=== PATIENT | male | born 1975 | race Caucasian/White ===

== ENCOUNTER → 2016-12-05 | Outpatient (CLI) | payer BC, OTHER ==
--- NOTE | 2016-12-08 09:07 | SLEEPCENT ---
DATE OF PROCEDURE: 12/05/2016 ORDERED BY: Ashanti Horowitz INTERPRETATION: Nocturnal polysomnography was performed due to concern for the obstructive sleep apnea syndrome in this patient with a history of excessive somnolence and nonrestorative sleep. 7 hours and 31 minutes of data were reviewed. There were 408 minutes of sleep identified. Sleep latency was normal at 13 minutes. REM sleep was delayed until interventions were made at 216 minutes. Sleep architecture improved after interventions were made. Overall sleep efficiency was 91.6%. The patient's EKG showed a sinus rhythm with an average heart rate of 75 beats per minute. EEG showed reasonably normal wave forms for awake and sleep. There were 72 respiratory events identified of 10 seconds in duration or greater for an apnea-hypopnea index of 10.6. The events were primarily obstructive not exclusive to sleep stage, associated with arousals 4.6 times per hour and oxygen desaturations into the 80s. Having clearly identified the presence of obstructive sleep apnea syndrome, testing was stopped at quarter to 1 a.m. for the application of pressure therapy. The patient was fit with a ResMed Quattro full face mask of medium size, 4 cm of water pressure were applied to the circuit and the lights were extinguished. Throughout the remaining portion of the study, titration was performed and optimal pressure at 6 cm was identified. There was little limb activity and remaining measures of sleep physiology were normal. IMPRESSION: Obstructive sleep apnea syndrome (G47.33). Apnea-hypopnea index 10.6. RECOMMENDATION: Nightly use of pressure therapy 6 cm of water.
== END ==
LOC: M SLEEP 19:48
PROVIDERS: ATTEND Nurse Practitioner Adult Health
DX: G47.33 Obstructive sleep apnea (adult) (pediatric) (principal)

== ENCOUNTER → 2020-03-11 | Outpatient (CLI) | payer OTHER ==
[2020-03-11 13:17] LABS: BASO # 0.1 10^3/uL (0.0-0.2); BASO % 0.5 % (0.0-1.0); EOS # 0.2 10^3/uL (0.0-0.5); HEMOGLOBIN 13.2 g/dl (13.5-17.5); LYMPH # 2.3 10^3/uL (1.5-5.0); LYMPH % 23.4 % (24.0-44.0); MEAN CORPUSCULAR HEMOGLOBIN 27.8 pg (27.0-33.0); MEAN CORPUSCULAR HGB CONC 32.2 g/dl (32.0-36.5); MEAN CORPUSCULAR VOLUME 86.3 fl (80.0-96.0); MONO # 0.7 10^3/uL (0.0-0.8); MONO % 6.9 % (0.0-5.0); NEUTROPHILS # 6.6 10^3/uL (1.5-8.5); NEUTROPHILS % 66.6 % (36.0-66.0); PLATELET COUNT, AUTOMATED 298 10^3/uL (150-450); RED BLOOD COUNT 4.75 10^6/uL (4.30-6.10); WHITE BLOOD COUNT 9.9 10^3/uL (4.0-10.0)
== END ==
LOC: M WUC 10:13
DX: D72.829 Elevated white blood cell count, unspecified (principal)

== ENCOUNTER → 2020-10-18 | Outpatient (CLI) | payer OTHER ==
[~2020-10-18] MED LIST: AMLO1TAB25; MONT10TA10; OMEP-221
== END ==
LOC: M LABSMTC 09:31
PROVIDERS: ATTEND Anesthesiology
DX: Z20.828 Contact with and (suspected) exposure to other viral communicable diseases (principal); Z11.59 Encounter for screening for other viral diseases

== ENCOUNTER 2020-10-23 11:30 | Day surgery (SDC) | payer OTHER ==
[~2020-10-23] VITALS: Ht 182.9 cm; Wt 139.3 kg
[~2020-10-23 11:30] MED LIST changes: -AMLO1TAB25; +AMLO1TAB25 PO; +FLON1SPR; +LIDOCAINE 2% 100MG/5ML SDV (FOR ANES.) As Ordered ONE; -MONT10TA10; +MONT10TA10 PO; +NS 1,000 ML IV ONE; -OMEP-221; +OMEP-221 PO; +ZYRTTAB8 PO; +propofoL 200 MG/20 ML VIAL As Ordered ONE
[2020-10-23] MEDS ORDERED: propofoL 200 MG/20 ML VIAL As Ordered ONE (13:59)
--- NOTE | 2020-10-23 14:08 | ROOR ---
Patient Name: Santana Carias Procedure Date: 10/23/2020 1:26 PM Date of : 1975 Age: 45 Room: [facility] Gender: Male Note Status: Finalized Procedure: Colonoscopy Indications: High risk colon cancer surveillance: Personal history of colonic polyps Providers: Kameron Wilson MD Referring MD: [facility], Admin. Requesting Provider: Medicines: Monitored Anesthesia Care Complications: No immediate complications. Procedure: Pre-Anesthesia Assessment: - The heart rate, respiratory rate, oxygen saturations, blood pressure, adequacy of pulmonary ventilation, and response to care were monitored throughout the procedure. The Colonoscope was introduced through the anus and advanced to the cecum, identified by appendiceal orifice and ileocecal valve. The colonoscopy was performed without difficulty. The patient tolerated the procedure well. The quality of the bowel preparation was adequate. Findings: The perianal and digital rectal examinations were normal. A frond-like/villous 3-4 cm polypoid mass was found in the cecum. This was biopsied with a cold forceps for histology. Multiple medium-mouthed diverticula were found in the sigmoid colon. Internal hemorrhoids were found during retroflexion. The hemorrhoids were small/moderate. Impression: - Rule out malignancy, polypoid mass/tumor in the cecum. (This was NOT removed. Biopsied). - Moderate diverticulosis in the sigmoid colon. - Small Internal hemorrhoids. Recommendation: - The cecal mass is not safely resectable via endoscopy. I will refer to a surgeon for surgical resection.at the next available appointment. Procedure Code(s): --- Professional --- 08442, Colonoscopy, flexible; with biopsy, single or multiple Diagnosis Code(s): --- Professional --- K57.30, Diverticulosis of large intestine without perforation or abscess without bleeding K64.8, Other hemorrhoids D49.0, Neoplasm of unspecified behavior of digestive system Z86.010, Personal history of colonic polyps CPT copyright 2019 [employer] [place] [employer]. All rights reserved. The codes documented in this report are preliminary and upon fleet operations manager review may be revised to meet current compliance requirements. Kameron Wilson MD Kameron Wilson MD 10/23/2020 2:08:04 PM Electronically signed by Kameron Wilson MD Number of Addenda: 0 Note Initiated On: 10/23/2020 1:26 PM Estimated Blood Loss: Estimated blood loss: none.
[2020-10-23 14:25] VITALS: BP 151/98
== END 2020-10-23 15:21 | disposition home or self-care (01) ==
LOC: M OPP 11:30
PROVIDERS: ATTEND Internal Medicine Gastroenterology
DX: Z86.010 Personal history of colon polyps (principal); D12.6 Benign neoplasm of colon, unspecified; K57.30 Diverticulosis of large intestine without perforation or abscess without bleeding; K64.8 Other hemorrhoids; I10 Essential (primary) hypertension; K21.9 Gastro-esophageal reflux disease without esophagitis; M19.90 Unspecified osteoarthritis, unspecified site; G47.30 Sleep apnea, unspecified; F17.200 Nicotine dependence, unspecified, uncomplicated; Z79.899 Other long term (current) drug therapy; Z83.3 Family history of diabetes mellitus; Z82.49 Family history of ischemic heart disease and other diseases of the circulatory system

== ENCOUNTER 2020-11-16 10:06 | Inpatient (IN) | payer OTHER ==
[~2020-11-16] VITALS: Ht 182.9 cm; Wt 134.3 kg
[~2020-11-16 10:06] MED LIST changes: +CelecoXIB 400 MG CAP PO ONE; +HEPARIN SOD (PORCINE) 5000UNITS/ML 1ML VIAL/SYRINGE SQ ONE; +LIDOCAINE 1% MDV 20ML VIAL SQ PRN; -LIDOCAINE 2% 100MG/5ML SDV (FOR ANES.) As Ordered ONE; +LR 1,000 ML IV ONE; -NS 1,000 ML IV ONE; +cefoTEtan DISODIUM 2 GM in D5W MINI-BAG PLUS 50 ML IV ONE; +metroNIDAZOLE 500 MG in IV 1 EA IV ONE; -propofoL 200 MG/20 ML VIAL As Ordered ONE
[2020-11-16] MEDS ORDERED: LIDOCAINE 1% SDV 30ML VIAL As Ordered ONE (12:07)
[2020-11-16] MEDS ORDERED: BUPIVACAINE HCL 0.25% 30ML VIAL As Ordered ONE (12:07)
[2020-11-16] MEDS ORDERED: BUPIVACAINE LIPOSOME/PF 1.3% 20ML VIAL (13.3MG/ML)(EXPAREL)(C9290 PER1MG) As Ordered ONE (12:07)
[2020-11-16] MEDS ORDERED: BUPIVACAINE HCL 0.25% 10ML VIAL As Ordered ONE (12:07)
[2020-11-16] MEDS ORDERED: ALVIMOPAN 12 MG CAPSULE (ENTEREG) PO ONE (12:50)
[2020-11-16] MEDS ORDERED: ROCURONIUM BROMIDE 50 MG/5 ML VIAL As Ordered ONE ×4 (13:06→17:19)
[2020-11-16] MEDS ORDERED: LIDOCAINE 2% 100MG/5ML SDV (FOR ANES.) As Ordered ONE (13:06)
[2020-11-16] MEDS ORDERED: propofoL 200 MG/20 ML VIAL As Ordered ONE (13:06)
[2020-11-16] MEDS ORDERED: MIDAZOLAM INJ 2MG/2ML VIAL (J2250 PER 1MG) As Ordered ONE (13:06)
[2020-11-16] MEDS ORDERED: fentaNYL 100 MCG/2 ML INJECTION (J3010) As Ordered ONE (13:06)
[2020-11-16] MEDS ORDERED: ONDANSETRON 4MG/2ML VIAL As Ordered ONE (13:06)
[2020-11-16] MEDS ORDERED: dexameTHASONE 4 MG/ML 1ML VIAL (J1100 PER 1MG) As Ordered ONE (13:06)
[2020-11-16] MEDS ORDERED: HYDROmorphone HCL 2 MG/ML 1ML VIAL (J1170) As Ordered ONE (13:16)
[2020-11-16] MEDS ORDERED: GLYCOPYRROLATE INJ 0.2 MG/ML 2 ML VIAL As Ordered ONE (13:27)
[2020-11-16] MEDS ORDERED: SUGAMMADEX SODIUM 500 MG/5 ML VIAL (BRIDION) As Ordered ONE (13:44)
[2020-11-16] MEDS ORDERED: ALBUTEROL 6.7GM INHALER **FOR ANES. CART/OMNICELL ONLY As Ordered ONE (16:47)
[2020-11-16] MEDS ORDERED: MORPHINE 4 MG/ML 1ML VIAL/SYRINGE (J2270) IV PRN (18:45)
[2020-11-16] MEDS ORDERED: ONDANSETRON 4MG/2ML VIAL IV PRN ×2 (18:45→18:55)
[2020-11-16] MEDS ORDERED: HYDROMORPHONE HCL 0.5 MG/ 0.5 ML SYRINGE (J1170 PER 1) IV PRN ×2 (18:55→19:25)
[2020-11-16] MEDS ORDERED: LR 1,000 ML IV SCH (18:55)
[2020-11-16] MEDS ORDERED: oxyCODONE 5MG TAB PO PRN (18:55)
[2020-11-16] MEDS: fentaNYL 100 MCG/2 ML INJECTION (J3010) IV PRN ×4 (19:00→19:22)
[2020-11-16] MEDS ORDERED: ACETAMINOPHEN 500 MG TAB PO ONE (19:30)
[2020-11-16 21:00] VITALS: BP 142/90
[2020-11-16] MEDS: FLUTICASONE PROP 0.05% NASAL SPRAY 16 GM (FLONASE) SCH (21:00)
[2020-11-16 21:30] VITALS: BP 140/86
[2020-11-16 22:00] VITALS: BP 149/77
[2020-11-16] MEDS: KETOROLAC 30 MG/ML 1ML VIAL IV SCH (22:04)
[2020-11-16] MEDS: SENOKOT S TAB PO SCH (22:04)
[2020-11-16] MEDS: LR 1,000 ML IV SCH (22:05)
[2020-11-16] MEDS: ALVIMOPAN 12 MG CAPSULE (ENTEREG) PO SCH (22:05)
[2020-11-16 23:00] VITALS: BP 115/78
[2020-11-17] VITALS: BP 124/77
[2020-11-17] MEDS: LR 1,000 ML IV SCH ×3 (00:38→16:35)
[2020-11-17 02:00] VITALS: BP 156/92
[2020-11-17] MEDS: KETOROLAC 30 MG/ML 1ML VIAL IV SCH ×4 (02:35→20:45)
[2020-11-17 06:00] VITALS: BP 156/91
[2020-11-17] MEDS: PERCOCET 5MG/325MG TAB PO PRN ×3 (06:56→23:16)
[2020-11-17 07:38] LABS: BASO % 0.3 % (0.0-1.0); EOS % 0.3 % (0.0-3.0); HEMATOCRIT 35.2 % (42.0-52.0); HEMOGLOBIN 11.3 g/dl (13.5-17.5); LYMPH # 2.2 10^3/uL (1.5-5.0); LYMPH % 15.3 % (24.0-44.0); MEAN CORPUSCULAR HEMOGLOBIN 27.6 pg (27.0-33.0); MEAN CORPUSCULAR HGB CONC 32.1 g/dl (32.0-36.5); MEAN CORPUSCULAR VOLUME 86.1 fl (80.0-96.0); MONO # 0.9 10^3/uL (0.0-0.8); MONO % 5.9 % (2.0-8.0); NEUTROPHILS # 11.3 10^3/uL (1.5-8.5); NEUTROPHILS % 77.8 % (36.0-66.0); PLATELET COUNT, AUTOMATED 273 10^3/uL (150-450); RED BLOOD COUNT 4.09 10^6/uL (4.30-6.10); WHITE BLOOD COUNT 14.5 10^3/uL (4.0-10.0)
[2020-11-17 08:03] LABS: BLOOD UREA NITROGEN 11 MG/DL (7-18); CALCIUM LEVEL 8.5 MG/DL (8.5-10.1); CARBON DIOXIDE LEVEL 28 MEQ/L (21-32); CHLORIDE LEVEL 106 MEQ/L (98-107); CREATININE FOR GFR 0.73 MG/DL (0.70-1.30); GLOMERULAR FILTRATION RATE > 60.0 (>60); GLUCOSE, FASTING 106 MG/DL (70-100); POTASSIUM SERUM 3.9 MEQ/L (3.5-5.1); SODIUM LEVEL 137 MEQ/L (136-145)
[2020-11-17] MEDS: MONTELUKAST 10 MG TAB PO SCH (08:30)
[2020-11-17] MEDS: SENOKOT S TAB PO SCH ×2 (08:30→20:45)
[2020-11-17] MEDS: ALVIMOPAN 12 MG CAPSULE (ENTEREG) PO SCH ×2 (08:30→20:45)
[2020-11-17] MEDS: FLUTICASONE PROP 0.05% NASAL SPRAY 16 GM (FLONASE) SCH ×2 (08:30→20:45)
--- NOTE | 2020-11-17 08:57 | IPNPDOC ---
Text Note Date of Service The patient was seen on 11/17/20. NOTE Gen. surgery. Dr. Hair The patient is a 45-year-old male with cecal mass status post robotic-assisted laparoscopic right colectomy as per Dr. Hair 11/16/20. The patient is sitting up in bed. Tolerated clear liquids for breakfast. He was reporting some pain but this improved after flatus. No bowel movement yet. Awake and alert sitting up in bed. Afebrile VSS Lungs clear to auscultation S1-S2 regular rate and rhythm Abdomen is obese, soft, mild tenderness around surgical sites, nondistended No edema I/O 3075/300 +2775 WBC 14.5, hemoglobin 11.3, platelets 27 Pathology pending Assessment/plan Status post robotic-assisted laparoscopic right colectomy as per Dr. Hair 11/16/20. Pathology pending The patient is reviewed and examined as per Dr. Hair this morning. Advance to soft diet for lunch IVF 125ml/hr Discontinue Castorena Encourage out of bed and ambulation DVT prophylaxis. Lovenox VS,Fishbone, I+O VS, Fishbone, I+O Laboratory Tests 11/17/20 07:12 Vital Signs Date Time Temp Pulse Resp B/P (MAP) Pulse Ox O2 Delivery O2 Flow Rate FiO2 11/17/20 08:30 66 138/66 11/17/20 07:27 18 11/17/20 06:00 98.1 97 Room Air 11/17/20 02:00 2.0 I&O- Last 24 Hours up to 6 AM 11/17/20 05:59 Intake Total 3075 ml Output Total 300 ml Balance 2775 ml Lidia Corbin Nov 17, 2020 08:57 MAYO HAIR MD Dec 08, 2020 10:50
[2020-11-17] MEDS: ENOXAPARIN 40MG/0.4ML SYRINGE (J1650 PER 10MG) SC SCH (10:03)
[2020-11-17 14:00] VITALS: BP 141/90
[2020-11-17 22:00] VITALS: BP 151/75
[2020-11-18] MEDS: LR 1,000 ML IV SCH ×2 (00:34→08:33)
[2020-11-18] MEDS: KETOROLAC 30 MG/ML 1ML VIAL IV SCH ×4 (03:39→21:27)
[2020-11-18 06:00] VITALS: BP 150/86
[2020-11-18] MEDS: PERCOCET 5MG/325MG TAB PO PRN ×3 (06:53→19:31)
[2020-11-18 07:01] LABS: BASO % 0.4 % (0.0-1.0); EOS # 0.2 10^3/uL (0.0-0.5); EOS % 1.5 % (0.0-3.0); HEMATOCRIT 33.6 % (42.0-52.0); HEMOGLOBIN 10.5 g/dl (13.5-17.5); LYMPH # 1.9 10^3/uL (1.5-5.0); LYMPH % 19.2 % (24.0-44.0); MEAN CORPUSCULAR HEMOGLOBIN 27.3 pg (27.0-33.0); MEAN CORPUSCULAR HGB CONC 31.3 g/dl (32.0-36.5); MEAN CORPUSCULAR VOLUME 87.5 fl (80.0-96.0); MONO # 0.6 10^3/uL (0.0-0.8); MONO % 6.4 % (2.0-8.0); NEUTROPHILS # 7.2 10^3/uL (1.5-8.5); PLATELET COUNT, AUTOMATED 272 10^3/uL (150-450); RED BLOOD COUNT 3.84 10^6/uL (4.30-6.10)
[2020-11-18 07:36] LABS: BLOOD UREA NITROGEN 9 MG/DL (7-18); CALCIUM LEVEL 8.4 MG/DL (8.5-10.1); CARBON DIOXIDE LEVEL 27 MEQ/L (21-32); CHLORIDE LEVEL 106 MEQ/L (98-107); GLOMERULAR FILTRATION RATE > 60.0 (>60); GLUCOSE, FASTING 120 MG/DL (70-100); POTASSIUM SERUM 4.1 MEQ/L (3.5-5.1); SODIUM LEVEL 137 MEQ/L (136-145)
[2020-11-18] MEDS: FLUTICASONE PROP 0.05% NASAL SPRAY 16 GM (FLONASE) SCH ×2 (08:32→21:00)
[2020-11-18] MEDS: SENOKOT S TAB PO SCH ×2 (08:33→21:00)
[2020-11-18] MEDS: MONTELUKAST 10 MG TAB PO SCH (08:33)
[2020-11-18] MEDS: ENOXAPARIN 40MG/0.4ML SYRINGE (J1650 PER 10MG) SC SCH (08:33)
[2020-11-18] MEDS: ALVIMOPAN 12 MG CAPSULE (ENTEREG) PO SCH ×2 (08:33→21:28)
[2020-11-18 14:00] VITALS: BP 149/86
[2020-11-18] MEDS: SIMETHICONE 80MG CHEW TAB PO PRN (21:28)
[2020-11-18] MEDS: ACETAMINOPHEN TAB 650MG DOSE (2X325MG) PO PRN (21:28)
[2020-11-18 22:00] VITALS: BP 136/86
[2020-11-19] VITALS (15 sets, daily range): BP systolic 111–158; BP diastolic 70–88
[2020-11-19] MEDS: KETOROLAC 30 MG/ML 1ML VIAL IV SCH ×3 (02:11→15:00)
[2020-11-19] MEDS: PERCOCET 5MG/325MG TAB PO PRN ×3 (02:11→20:49)
--- NOTE | 2020-11-19 03:34 | ROOPDOC ---
[facility] Report Of Operation Report of Operation DATE OF PROCEDURE: 11/16/20 PREPROCEDURE DIAGNOSES: cecal mass. POSTPROCEDURE DIAGNOSES: cecal mass. PROCEDURE: Robotic assisted laparoscopic right colectomy SURGEON: Nathan Tellez MD INFORMATION COORDINATOR: Smitha Collier, OLGA Ms. Collier assisted me with placement of ports, management of the robotic instruments, adjustment of the arms on the field while I was at the surgeon's console, retraction of bowels, extraction specimen and closure of the extraction site as well as closure of the ports during the surgery. ANESTHESIA: General endotracheal anesthesia ESTIMATED BLOOD LOSS: Approximately 50 mL. COMPLICATIONS: None. Patient hemodynamically stable throughout the procedure, successfully extubated to the recovery room. REMARKS: 45-year-old male who underwent screening colonoscopy and was found to have a la rge polypoid mass at the cecum/ascending colon junction that is not endoscopically resectable and biopsy shows high-grade dysplasia. Plan is for him to undergo a formal right colectomy for suspicion that this is a malignant lesion. PROCEDURE NOTE: Patient has very thick omentum and mesentery and floppy colon. No peritoneal lesions nor lesions at the surface of the liver noted. DESCRIPTION OF PROCEDURE: The patient was brought to the operating room and placed supine on the operating table. Cefotetan 2 g IV and redosed 1 gm every 4 hours and metronidazole 500 mg IV were administered prior to incision for prophylaxis. After induction of general endotracheal anesthesia, he was placed supine with both arms tucked on his sides with the pressure points padded. He received 5000 units of heparin preoperatively subcutaneously for DVT prophylaxis as well as compression boots in both his lower extremities. A Castorena catheter was inserted.Time-outs were performed using both preinduction and pre-incision safety checklists to verify correct patient, procedure, site, and additional critical information prior to beginning the procedure. A Veress needle was introduced into the abdominal cavity at the patient's left upper quadrant. Intra-abdominal placement confirmed with saline drop technique . and pneumoperitoneum to a pressure of 15 mmHg was achieved. Under direct visualization with the laparoscope an 8 mm robotic trocar was placed at the infraumbilical position. Proper intra-abdominal placement confirmed and no injuries noted underneath the insertion site. Likewise a varies needle insertion site examined with no signs of bleeding or injury. I started with performed diagnostic laparoscopy. I looked over at the peritoneum, omentum and surface of the liver with no visible studding or signs of metastasis noted. No free fluid. Omentum is quite bulky covering most of the small bowel. Likewise right side of the colon is quite floppy. Otherwise I could not visually confirm laparoscopically the lesion which is noted to be at the cecum on endoscopy. He was repositioned on about 10 degree Trendelenburg position tilted towards the left side. I established my robotic ports and the typical oblique positioning deviating towards the left side for adequate distance to the right colon and right upper quadrant area. I placed a 12 mm suprapubic port which I will use later on for extraction and 2 other 8 mm ports towards the left upper quadrant area. I performed a transversus abdominis plane block using a mixture of Exparel, 1 4% Marcaine and normal saline placed 30 mL in each side under ultrasound guidance The da Beth robot tower was then positioned in place over the patient's right hip area. The arms docked to the trochars, the instruments placed under direct vision. I then scrubbed out and took control of the camera and instruments at the surgeon's console while my help desk assistant remains in the field for instrument exchange as well as adjustment of the arms during surgery. The omentum was retracted towards the upper abdomen to reveal the course of the cecum and transverse colon. The cecum was grasped and lifted up to tent the mesentery to find the course of the ileocolic artery. I started opening up the mesentery below and medial to the course of the ileocolic artery and created my retroileocolic and retro colonic tunnel the Toldts fascia and retroperitoneum from the mesentery of the right colon mostly with blunt dissection. I followed the course of the ileocolic vessels medially. The ileocolic artery and vein are separately dissected. Hem-o-ulises clips placed on each of the vessels and they were divided. I continued my dissection medially until I was able to identify the duodenum which is in the more medial location probably more to do with his body habitus. To follow the course of the duodenal sweep medially as well as underneath the hepatic flexure towards the gallbladder and laterally towards the lateral attachments of the cecum and ascending colon. As the colon is quite floppy I had a hard time getting beyond the hepatic flexure and transverse colon as it was falling onto my camera. I then switched to a supra mesocolic dissection of the transverse colon the gastrocolic attachments from the transverse colon but also dividing the omentum to bring it towards the specimen side. Proceeded laterally towards the hepatic flexure. Here and there I was also switching to lateral dissection of the cecum and the ascending colon towards the hepatic flexure when the supra mesocolic dissection was difficult. After freeing up the hepatic flexure and lateral attachments of the ascending colon, I continued my prior medial mesenteric dissection on top of the duodenum. This was performed with michael Duong. The right branch of the middle colic was identified and this was circumferentially dissected and clipped and divided and then proceeded superiorly towards the transverse colon. The mesentery of the transverse colon was then divided with a single seal device. Prior to dividing the transverse colon, I used ICG and firefly to identify midline resection and make sure I have adequate perfusion. 3 cc of ICG was used. The transverse colon was then divided and 2 firings of the short form 60 mm stapler with a blue load. At this point I completed the left upper attachments to the retroperitoneum freeing the rest of the right colon off the Gerota's fascia and left over hepatic and retroperitoneal attachments. I chose roughly about 8 cm of terminal ileum as my proximal line of resection after freeing up the retroperitoneal attachments of the terminal ileum to allow this to swing towards the midline. This was also divided with a blue load of the short form 60 mm stapler. At this point the right colon has been fully released and divided and this was placed up on top of the liver for later retraction. The surgical site was inspected for bleeding and be irrigated the area. I again irrigated and checked for adequate hemostasis. The right colon was placed at the suprapubic area below the 12 mm site for later extraction. I then scrubbed in. I created about the 3-4 cm transverse incision at the stapler port. This through the subcutaneous thinks tissue and opened up the fascia for our extraction site. I used an Joel wound protector was placed and the right colon specimen was extracted. The extraction site the anastomosis is well up towards the epigastric area. The extraction site was then closed using 0 V-Loc to close the peritoneum and posterior fascia and #1 stratafix to close the anterior fascia. All skin incisions were closed with 4-0 Monocryl in a subcuticular fashion. Dermabond was then used for postoperative dressing. Patient tolerated procedure well. All counts of sponges and instruments verified correct. He was promptly awakened, extubated and brought to recovery room in stable condition. NATHAN TELLEZ MD Nov 19, 2020 03:34
[2020-11-19] MEDS: SIMETHICONE 80MG CHEW TAB PO PRN (06:02)
[2020-11-19] MEDS: ACETAMINOPHEN TAB 650MG DOSE (2X325MG) PO PRN (06:03)
[2020-11-19 06:54] LABS: BASO % 0.2 % (0.0-1.0); EOS % 0.1 % (0.0-3.0); HEMATOCRIT 25.6 % (42.0-52.0); LYMPH # 1.3 10^3/uL (1.5-5.0); LYMPH % 6.6 % (24.0-44.0); MEAN CORPUSCULAR HEMOGLOBIN 27.8 pg (27.0-33.0); MEAN CORPUSCULAR VOLUME 86.8 fl (80.0-96.0); MONO % 5.3 % (2.0-8.0); NEUTROPHILS # 16.5 10^3/uL (1.5-8.5); NEUTROPHILS % 86.7 % (36.0-66.0); PLATELET COUNT, AUTOMATED 249 10^3/uL (150-450); RED BLOOD COUNT 2.95 10^6/uL (4.30-6.10); WHITE BLOOD COUNT 19.1 10^3/uL (4.0-10.0)
[2020-11-19 07:00] LABS: HEMOGLOBIN 8.2 g/dl (13.5-17.5)
[2020-11-19 07:22] LABS: BLOOD UREA NITROGEN 15 MG/DL (7-18); CALCIUM LEVEL 8.3 MG/DL (8.5-10.1); CARBON DIOXIDE LEVEL 26 MEQ/L (21-32); CHLORIDE LEVEL 105 MEQ/L (98-107); CREATININE FOR GFR 0.86 MG/DL (0.70-1.30); GLOMERULAR FILTRATION RATE > 60.0 (>60); GLUCOSE, FASTING 148 MG/DL (70-100); SODIUM LEVEL 136 MEQ/L (136-145)
[2020-11-19] MEDS: SENOKOT S TAB PO SCH ×2 (07:48→20:49)
[2020-11-19] MEDS: MONTELUKAST 10 MG TAB PO SCH (07:53)
--- NOTE | 2020-11-19 08:48 | REP ---
INDICATION: s/p colon surgery, abdominal pain patient is status post robotic assisted laparoscopic right colectomy November 16, 2020. COMPARISON: Comparison CT study September 30, 2005.. TECHNIQUE: Helical scanning is acquired and 3 mm axial images were reformatted. Coronal and sagittal MPR images were generated and reviewed. FINDINGS: Digital preliminary pigs feet finisher view is unremarkable. There is some platelike atelectasis in the lung bases bilaterally, right more so than left. No pleural effusion is seen. There is scattered bubbles of free intraperitoneal air visible over the liver and anteriorly in the abdomen. This is compatible with residual postoperative air. There are subcutaneous postsurgical air bubbles in the anterior abdominal wall centrally in the suprapubic region and in the right mid abdomen. No focal hepatic lesion is seen. The spleen is unremarkable. There is a small accessory splenule. No pancreatic abnormality is seen. No abnormality is noted in the gallbladder. Normal adrenal glands are observed bilaterally. There is no evidence hydronephrosis. There is a small low-density area in the right kidney consistent with a cyst, 2 cm in diameter. There is a large area of mesenteric fat streaking consistent with edema in the right mid abdomen adjacent to what appears to be the ileo colic anastomosis. The ileal loop at the anastomosis is slightly dilated and thick-walled. There is a tiny amount of adjacent fluid. No evidence to suggest abscess. On pelvic images there is a small quantity of fluid in the pelvic reflections posterior to the seminal vesicles. Bowel loops are otherwise unremarkable. IMPRESSION: There is a large area of mesenteric fat streaking consistent with edema adjacent to the ileocolic anastomosis in the right mid abdomen. There are scattered bubbles of free intraperitoneal air consistent with residual postoperative air. A tiny quantity of fluid is seen in the pelvic reflections. No evidence of obstruction. <Electronically signed by Alec Mar > 11/19/20 [id number]
[2020-11-19] MEDS: FLUTICASONE PROP 0.05% NASAL SPRAY 16 GM (FLONASE) SCH ×2 (08:59→20:54)
[2020-11-19] MEDS: PIPERACILLIN/TAZOBACTAM SOD 3.375 GM in D5W MINI-BAG PLUS 50 ML IV SCH ×3 (08:59→20:51)
[2020-11-19] MEDS: NS 1,000 ML IV SCH ×2 (10:32→20:49)
[2020-11-19] MEDS: MORPHINE 4 MG/ML 1ML VIAL/SYRINGE (J2270) IV PRN ×2 (10:45→23:05)
[2020-11-19] MEDS ORDERED: LIDOCAINE 1% SDV 30ML VIAL As Ordered ONE (14:18)
[2020-11-19] MEDS ORDERED: BUPIVACAINE HCL 0.25% 30ML VIAL As Ordered ONE (14:18)
[2020-11-19] MEDS ORDERED: MIDAZOLAM INJ 2MG/2ML VIAL (J2250 PER 1MG) As Ordered ONE (14:25)
[2020-11-19] MEDS ORDERED: fentaNYL 100 MCG/2 ML INJECTION (J3010) As Ordered ONE ×2 (14:26→15:46)
[2020-11-19] MEDS ORDERED: propofoL 200 MG/20 ML VIAL As Ordered ONE ×2 (14:27→17:13)
[2020-11-19] MEDS ORDERED: LIDOCAINE 2% 100MG/5ML SDV (FOR ANES.) As Ordered ONE (14:29)
[2020-11-19] MEDS ORDERED: ZOSYN 3.375GM VIAL (J2543) As Ordered ONE (14:30)
[2020-11-19] MEDS ORDERED: ROCURONIUM BROMIDE 50 MG/5 ML VIAL As Ordered ONE ×4 (14:30→16:49)
[2020-11-19] MEDS ORDERED: dexameTHASONE 4 MG/ML 1ML VIAL (J1100 PER 1MG) As Ordered ONE ×2 (14:31→15:18)
--- NOTE | 2020-11-19 14:37 | IPNPDOC ---
Text Note Date of Service The patient was seen on 11/19/20. NOTE Yesterday morning patient was feeling well and was tolerating soft diet and was actually ready to go home. Sometime in the mid afternoon he started having more passing out bright red blood and had several bloody bowel movements overnight. Late in the evening he also started having some crampy abdominal pain. He describes this as mid abdominal crampy pain radiating to his lower back. He felt nauseated. Overnight he has 2 more raghavendra colored stools. He was also noted to be mildly febrile last night though this came down on its own. This morning patient still reports moderate abdominal pain though he does report that he feels mildly better than it was late last evening. Last bloody bowel movement was early this morning. He has remained hemodynamically stable. Vital signs reviewed T-max 100.8 at 2200 last night. 100.0 this morning. Pulse rate is 91. Resp iratory rate 18. 95% saturation on room air. Blood pressure 111/86 Examination He was sitting up on his chair with anterior room and looking comfortable. Skin is warm and moist. Lungs are clear to auscultation bilaterally Heart rate and rhythm are regular Abdomen looks moderately distended, soft. He has robotic/laparoscopic port sites are covered with Dermabond and are clean dry and intact. He has Pfannenstiel extraction site incision also looking clean without any drainage. There is some moderate tenderness over the periumbilical area with no definite rebound or guarding No significant extremity edema Laboratories His WBC was 10 yesterday and is increased to 19 today Hemoglobin also dropped from 10.5 yesterday to 8.2 today CRP is 10.8 Impression and plan He is postoperative day #3 after robotic assisted laparoscopic colectomy for cecal mass. Dr. 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 Final pathology not available yet. I have informed the patient of the initial pathology results. There is a big change from yesterday and overnight into day and my concern is whether he has an anastomotic leak. He certainly has staple line bleed that is significant enough to drop his hemoglobin 2 points from yesterday though he remains hemodynamically stable. I am more concerned about the new increasing abdominal discomfort that he is reporting. I have obtained a noncontrast CT and see for a few bubbles of air reddened top of the liver does not reveal any big free perforation. There is no large fluid collection. There is expected edema at the level of the anastomosis in the mesentery. As I am still concerned that there may be a problem with anastomosis I have elected to bring him to the operating room for diagnostic laparoscopy. My main concern is problems with the anastomosis. The anastomosis may need to be revised. Consent was obtained from the patient. I have also consented him for blood transfusion for 2 units today. I have started him on Zosyn to cover for possible anastomotic leakage and I have made him n.p.o. and started him on IV fluids. VS,Fishbone, I+O VS, Fishbone, I+O Laboratory Tests 11/19/20 06:29 Vital Signs Date Time Temp Pulse Resp B/P (MAP) Pulse Ox O2 Delivery O2 Flow Rate FiO2 11/19/20 14:15 99.6 95 18 156/80 96 Room Air 11/17/20 02:00 2.0 I&O- Last 24 Hours up to 6 AM 11/19/20 05:59 Intake Total 2740 ml Output Total 1925 ml Balance 815 ml MAYO HAIR MD Nov 19, 2020 14:37
[2020-11-19] MEDS ORDERED: ONDANSETRON 4MG/2ML VIAL As Ordered ONE (15:20)
[2020-11-19] MEDS ORDERED: BUPIVACAINE LIPOSOME/PF 1.3% 20ML VIAL (13.3MG/ML)(EXPAREL)(C9290 PER1MG) As Ordered ONE (15:46)
[2020-11-19] MEDS ORDERED: HYDROmorphone HCL 2 MG/ML 1ML VIAL (J1170) As Ordered ONE (16:03)
[2020-11-19] MEDS ORDERED: SUGAMMADEX SODIUM 500 MG/5 ML VIAL (BRIDION) As Ordered ONE (16:43)
[2020-11-19] MEDS ORDERED: BUPIVACAINE HCL 0.25% 10ML VIAL As Ordered ONE (16:49)
[2020-11-19] MEDS ORDERED: ACETAMINOPHEN 1000MG 100ML IV BTL (OFIRMEV) (J0131 PER 10MG) As Ordered ONE (17:21)
[2020-11-19] MEDS ORDERED: KETOROLAC 60MG 2ML VIAL As Ordered ONE (17:23)
[2020-11-19] MEDS ORDERED: fentaNYL 100 MCG/2 ML INJECTION (J3010) IV PRN (18:30)
[2020-11-19] MEDS ORDERED: ONDANSETRON 4MG/2ML VIAL IV PRN (18:30)
[2020-11-19] MEDS ORDERED: LR 1,000 ML IV SCH (18:30)
[2020-11-19] MEDS ORDERED: METOCLOPRAMIDE INJ 10MG/2ML VIAL (J2765 PER 1) IV PRN (18:30)
[2020-11-19] MEDS ORDERED: MEPERIDINE INJ 25 MG/ML VIAL (J2175) IV PRN (18:30)
[2020-11-19 18:32] LABS: HEMATOCRIT 28.8 % (42.0-52.0); HEMOGLOBIN 9.4 g/dl (13.5-17.5); MEAN CORPUSCULAR HEMOGLOBIN 28.3 pg (27.0-33.0); MEAN CORPUSCULAR HGB CONC 32.6 g/dl (32.0-36.5); MEAN CORPUSCULAR VOLUME 86.7 fl (80.0-96.0); PLATELET COUNT, AUTOMATED 228 10^3/uL (150-450); RED BLOOD COUNT 3.32 10^6/uL (4.30-6.10); WHITE BLOOD COUNT 16.6 10^3/uL (4.0-10.0)
[2020-11-20 02:00] VITALS: BP 127/72
[2020-11-20] MEDS: PERCOCET 5MG/325MG TAB PO PRN ×6 (02:05→23:35)
[2020-11-20] MEDS: PIPERACILLIN/TAZOBACTAM SOD 3.375 GM in D5W MINI-BAG PLUS 50 ML IV SCH ×4 (02:05→20:17)
[2020-11-20] MEDS: MORPHINE 4 MG/ML 1ML VIAL/SYRINGE (J2270) IV PRN ×3 (04:57→14:36)
[2020-11-20] MEDS: NS 1,000 ML IV SCH (05:15)
[2020-11-20 06:00] VITALS: BP 157/91
[2020-11-20 06:23] LABS: BASO % 0.1 % (0.0-1.0); EOS % 0.1 % (0.0-3.0); HEMATOCRIT 26.6 % (42.0-52.0); HEMOGLOBIN 8.6 g/dl (13.5-17.5); LYMPH % 5.1 % (24.0-44.0); MEAN CORPUSCULAR HEMOGLOBIN 28.3 pg (27.0-33.0); MEAN CORPUSCULAR HGB CONC 32.3 g/dl (32.0-36.5); MEAN CORPUSCULAR VOLUME 87.5 fl (80.0-96.0); MONO # 1.2 10^3/uL (0.0-0.8); MONO % 6.1 % (2.0-8.0); NEUTROPHILS # 16.7 10^3/uL (1.5-8.5); NEUTROPHILS % 87.8 % (36.0-66.0); PLATELET COUNT, AUTOMATED 224 10^3/uL (150-450); RED BLOOD COUNT 3.04 10^6/uL (4.30-6.10)
[2020-11-20 06:46] LABS: BLOOD UREA NITROGEN 12 MG/DL (7-18); CALCIUM LEVEL 8.2 MG/DL (8.5-10.1); CARBON DIOXIDE LEVEL 28 MEQ/L (21-32); CHLORIDE LEVEL 106 MEQ/L (98-107); CREATININE FOR GFR 0.74 MG/DL (0.70-1.30); GLOMERULAR FILTRATION RATE > 60.0 (>60); GLUCOSE, FASTING 135 MG/DL (70-100); POTASSIUM SERUM 4.1 MEQ/L (3.5-5.1); SODIUM LEVEL 136 MEQ/L (136-145)
--- NOTE | 2020-11-20 07:55 | ROOPDOC ---
[facility] Report Of Operation Report of Operation DATE OF PROCEDURE: 11/19/20 PREPROCEDURE DIAGNOSES: postop bleeding, possible anastomotic leak. POSTPROCEDURE DIAGNOSES: bleeding and small perforation at the mesenteric end of the transverse colon stump, intact ileocolic anastomosis. PROCEDURE: Diagnostic Laparoscopy converted to mini-laparotomy with washout of abdomen, resection of previous ileocolic anastomosis and new anti-peristaltic ileo-colic anastomosis. SURGEON: Nathan Tellez MD, INJECTION MOLD TOOLING TECHNICIAN: ANESTHESIA: General endotracheal anesthesia. ESTIMATED BLOOD LOSS: Approximately 100 mL. COMPLICATIONS: None. REMARKS: Patient is a 45-year-old male who is postop day 3 from robotic assisted laparoscopic right colectomy for cecal mass, yesterday started having multiple bright red blood in raghavendra colored stool output as well as increasing abd ominal pain overnight. This morning he has leukocytosis of 19,000 from 10,[address] scan of the abdomen and pelvis was not so revealing or definitive for anastomotic leakage but patient's course is suspicious for it so I decided to bring him to the operating room for diagnostic laparoscopy. PROCEDURE NOTE: Small amount of murky fluid. Hepatically and around the ileocolic anastomosis but no tawanda succus or stool that I could see. I tested the anastomosis under water and this was not evident of also for a leak but there is a good amount of swelling at the level of the anastomosis and the small bowel portion of the anastomosis is tethered to the retroperitoneum over the right upper quadrant area which may be causing some obstruction, thus I decided to bring the anastomosis to the surface to examine it more thoroughly with a mini laparotomy above the umbilicus. Examination shows there is a small amount of punctate hole at the mesenteric side of the transverse colon stump. This is close to but not at the staple line. There is also some small amount of pericolonic and perimesenteric exudates around the area pointing to this as the site of the perforation. The ileocolic anastomosis turned out to be intact. Moderate amount of swelling at the mesentery of the transverse colon at that area of the perforation.. DESCRIPTION OF PROCEDURE: . NATHAN TELLEZ MD Nov 20, 2020 07:55
--- NOTE | 2020-11-20 09:22 | IPNPDOC ---
Text Note Date of Service The patient was seen on 11/20/20. NOTE Patient seen this morning. They brought him back to the operating room for s uspicion of an anastomotic leak and he was found to have a small punctate hole at the transverse colon stump. This is away from the anastomotic line also below but not exactly at the stump staple line but within the mesentery. This probably caused both the bleeding and the delayed perforation so I would think this may be an energy device injury during dissection or may be was caught up with the stapler during firing. I revised the ileocolic anastomosis after resecting the prior anastomotic site. He has been afebrile, hemodynamically stable, nontachycardic after the procedure and has made adequate urine output. He reports he feels somewhat "tight" but otherwise pain is better, denies any nausea. He is not yet passing any flatus nor having any bowel movements. He has not had any bloody bowel movements since yesterday morning. Vital signs Postoperatively he has been afebrile. Latest vitals shows temperature of 98.7. Pulse rate 72. Respiratory rate 21. Blood pressure 157/91. Pulse oximetry reading of 93% at room air. On examination he was sitting upright on his bed. He looks more comfortable than he was preoperatively yesterday. Skin is warm moist. Lung sounds are clear to auscultation bilaterally with no wheezing. Adequate deep inspirations. Regular heart rate and rhythm without murmurs. Abdomen looks much less distended more flat than yesterday, still somewhat mil dly distended. Hypoactive bowel sounds. He has a new vertical incision above the umbilicus this is covered with Dermabond. Mild bruising around it but otherwise clean dry and intact without any drainage. He has a new Ahmet-Cosme drain that is draining light serosanguineous fluid. Mildly tender around more the incision site also slightly right lower abdomen. No rebound or guarding No significant edema Laboratory WBC still elevated at 19,000. Hemoglobin 8.6. Hematocrit 26.6. He had 2 units packed RBC transfused yesterday. Electrolytes are acceptable. BUN of 12 creatinine 0.7 Impression and plan He is now postop day 4 from the original robotic assisted laparoscopic right colectomy, postop day 1 after return to the OR and was found to have a small perforation at the transverse colon stump with revision of the prior ileocolic anastomosis via a mini laparotomy incision Overall improved. We will go slow on his progression of his oral intake. I will allow him some full liquids there on the day. I have advised him to ambulate the hallways. We will discontinue his Castorena catheter. I am have expecting that he may have some element of ileus due to the inflammatory/infectious process. Continue the IV Zosyn. Continue with Lovenox for DVT prophylaxis. This was stopped perioperatively due to the bleeding. He has some post hemorrhagic anemia we will continue just to watch this for now. I do not believe he is actively bleeding at this point. 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 VS,Fishbone, I+O VS, Fishbone, I+O Laboratory Tests 11/19/20 18:13 11/20/20 06:04 Vital Signs Date Time Temp Pulse Resp B/P (MAP) Pulse Ox O2 Delivery O2 Flow Rate FiO2 11/20/20 06:48 18 11/20/20 06:00 98.7 72 157/91 (113) 93 Room Air 11/19/20 18:45 1.0 I&O- Last 24 Hours up to 6 AM 11/20/20 06:00 Intake Total 3110 ml Output Total 1880 ml Balance 1230 ml MAYO HAIR MD Nov 20, 2020 09:22
[2020-11-20] MEDS: CelecoXIB (CeleBREX) 100 MG CAP PO SCH ×2 (09:23→20:17)
[2020-11-20] MEDS: MONTELUKAST 10 MG TAB PO SCH (09:23)
[2020-11-20] MEDS: FLUTICASONE PROP 0.05% NASAL SPRAY 16 GM (FLONASE) SCH ×2 (09:24→20:17)
[2020-11-20] MEDS: SENOKOT S TAB PO SCH ×2 (09:24→20:17)
[2020-11-20] MEDS: FERROUS GLUCONATE 324 MG TAB PO SCH (09:31)
[2020-11-20] MEDS: ENOXAPARIN 40MG/0.4ML SYRINGE (J1650 PER 10MG) SC SCH (09:31)
[2020-11-20 10:00] VITALS: BP 116/70
[2020-11-20 14:00] VITALS: BP 118/70
[2020-11-20] MEDS: SIMETHICONE 80MG CHEW TAB PO PRN (17:49)
[2020-11-20 22:00] VITALS: BP 147/67
[2020-11-21] MEDS: PIPERACILLIN/TAZOBACTAM SOD 3.375 GM in D5W MINI-BAG PLUS 50 ML IV SCH ×4 (03:23→20:11)
[2020-11-21] MEDS: PERCOCET 5MG/325MG TAB PO PRN ×5 (04:34→22:38)
[2020-11-21] MEDS: SIMETHICONE 80MG CHEW TAB PO PRN ×2 (04:34→20:11)
[2020-11-21 06:00] VITALS: BP 129/76
[2020-11-21 06:30] LABS: BASO % 0.1 % (0.0-1.0); EOS # 0.2 10^3/uL (0.0-0.5); HEMATOCRIT 30.6 % (42.0-52.0); HEMOGLOBIN 9.8 g/dl (13.5-17.5); LYMPH # 1.3 10^3/uL (1.5-5.0); LYMPH % 6.5 % (24.0-44.0); MEAN CORPUSCULAR HEMOGLOBIN 28.2 pg (27.0-33.0); MEAN CORPUSCULAR VOLUME 87.9 fl (80.0-96.0); MONO # 1.1 10^3/uL (0.0-0.8); MONO % 5.3 % (2.0-8.0); NEUTROPHILS # 17.4 10^3/uL (1.5-8.5); NEUTROPHILS % 86.2 % (36.0-66.0); PLATELET COUNT, AUTOMATED 375 10^3/uL (150-450); RED BLOOD COUNT 3.48 10^6/uL (4.30-6.10); WHITE BLOOD COUNT 20.2 10^3/uL (4.0-10.0)
[2020-11-21 06:51] LABS: BLOOD UREA NITROGEN 14 MG/DL (7-18); CALCIUM LEVEL 8.2 MG/DL (8.5-10.1); CARBON DIOXIDE LEVEL 27 MEQ/L (21-32); CHLORIDE LEVEL 103 MEQ/L (98-107); CREATININE FOR GFR 0.78 MG/DL (0.70-1.30); GLOMERULAR FILTRATION RATE > 60.0 (>60); GLUCOSE, FASTING 143 MG/DL (70-100); POTASSIUM SERUM 3.8 MEQ/L (3.5-5.1); SODIUM LEVEL 137 MEQ/L (136-145)
[2020-11-21] MEDS: MONTELUKAST 10 MG TAB PO SCH (08:54)
[2020-11-21] MEDS: SENOKOT S TAB PO SCH ×2 (08:54→20:11)
[2020-11-21] MEDS: CelecoXIB (CeleBREX) 100 MG CAP PO SCH ×2 (08:55→20:11)
[2020-11-21] MEDS: FERROUS GLUCONATE 324 MG TAB PO SCH (08:58)
[2020-11-21] MEDS: ENOXAPARIN 40MG/0.4ML SYRINGE (J1650 PER 10MG) SC SCH (08:59)
[2020-11-21] MEDS: FLUTICASONE PROP 0.05% NASAL SPRAY 16 GM (FLONASE) SCH ×2 (09:15→20:12)
--- NOTE | 2020-11-21 12:03 | IPNPDOC ---
Text Note Date of Service The patient was seen on 11/21/20. NOTE Patient reports he is feeling mildly better today he has had a few loose but nonbloody bowel movements. He is not really passing flatus in between those bowel movements and he reports that he has been burping , likewise having some increased heartburn symptoms overnight. He has been afebrile postop. He tells me he is ambulating to the floors. Vital signs reviewed Afebrile, nontachycardic Examination Patient seen, sitting up on the chair where I usually find him, he looks more comfortable today. Skin is warm dry Lung sounds mildly decreased on both basal areas, no rales Regular heart rate and rhythm Abdomen looks less distended than it was the past 2 days, still hypoactive bowel sounds. His Ahmet-Cosme drains mainly putting out serous fluid. He has a vertical midline incision above the umbilicus, a Pfannenstiel incision from the first surgery and trocar sites that are all clean dry and intact. Mildly tender mostly centered over the upper vertical midline incision. No rebound or guarding. No significant extremity edema Impression and plan He is now postop day #5 from the original right colectomy, postop day 2 following return to the OR, revision of his ileocolic anastomosis. There is a punctate hole at the mesenteric side at the transverse colon stump that may be an energy device injury as there was a delay in the bleeding and the perforation. He still has significant white count of 20,000, significant CRP and probably a small amount of ileus. Were getting a lot of drainage from the Ahmet-Cosme drain which probably is reflective of the edema at the mesentery. I will think he is ready yet to be advanced to solid food so we will keep him on full liquids alone she is able to tolerate this. He is ambulating the hallways. I encouraged him to use the incentive spirometer is more. We will continue him on Zosyn. Final pathology of the cecal mass pending though I have spoken to our pathologist and confirms that this is cancer. VS,Kte, I+O VS, Fishbone, I+O Laboratory Tests 11/21/20 06:10 Vital Signs Date Time Temp Pulse Resp B/P (MAP) Pulse Ox O2 Delivery O2 Flow Rate FiO2 11/21/20 10:27 16 11/21/20 08:58 85 142/80 11/21/20 06:00 97.5 94 Room Air 11/19/20 18:45 1.0 I&O- Last 24 Hours up to 6 AM 11/21/20 06:00 Intake Total 1760 ml Output Total 1610 ml Balance 150 ml MAYO HAIR MD Nov 21, 2020 12:03
[2020-11-21] MEDS: OMEPRAZOLE 20 MG CAP PO SCH (13:12)
[2020-11-21 14:00] VITALS: BP 128/75
[2020-11-21 22:00] VITALS: BP 156/75
[2020-11-22] MEDS: PIPERACILLIN/TAZOBACTAM SOD 3.375 GM in D5W MINI-BAG PLUS 50 ML IV SCH ×4 (03:50→21:14)
[2020-11-22] MEDS: PERCOCET 5MG/325MG TAB PO PRN ×4 (03:51→19:38)
[2020-11-22 06:00] VITALS: BP 135/73
[2020-11-22 06:55] LABS: BASO % 0.2 % (0.0-1.0); EOS # 0.4 10^3/uL (0.0-0.5); EOS % 3.3 % (0.0-3.0); HEMATOCRIT 26.2 % (42.0-52.0); HEMOGLOBIN 8.4 g/dl (13.5-17.5); LYMPH # 0.9 10^3/uL (1.5-5.0); LYMPH % 7.5 % (24.0-44.0); MEAN CORPUSCULAR HGB CONC 32.1 g/dl (32.0-36.5); MEAN CORPUSCULAR VOLUME 87.3 fl (80.0-96.0); MONO # 0.9 10^3/uL (0.0-0.8); MONO % 7.1 % (2.0-8.0); NEUTROPHILS # 10.2 10^3/uL (1.5-8.5); PLATELET COUNT, AUTOMATED 313 10^3/uL (150-450); WHITE BLOOD COUNT 12.6 10^3/uL (4.0-10.0)
[2020-11-22 07:32] LABS: BLOOD UREA NITROGEN 11 MG/DL (7-18); CALCIUM LEVEL 7.8 MG/DL (8.5-10.1); CARBON DIOXIDE LEVEL 27 MEQ/L (21-32); CHLORIDE LEVEL 102 MEQ/L (98-107); GLOMERULAR FILTRATION RATE > 60.0 (>60); GLUCOSE, FASTING 120 MG/DL (70-100); POTASSIUM SERUM 3.4 MEQ/L (3.5-5.1); SODIUM LEVEL 136 MEQ/L (136-145)
[2020-11-22] MEDS: ENOXAPARIN 40MG/0.4ML SYRINGE (J1650 PER 10MG) SC SCH (08:35)
[2020-11-22] MEDS: FLUTICASONE PROP 0.05% NASAL SPRAY 16 GM (FLONASE) SCH ×2 (08:35→21:52)
[2020-11-22] MEDS: SENOKOT S TAB PO SCH ×2 (08:35→21:15)
[2020-11-22] MEDS: MONTELUKAST 10 MG TAB PO SCH (08:36)
[2020-11-22] MEDS: CelecoXIB (CeleBREX) 100 MG CAP PO SCH ×2 (08:36→21:15)
[2020-11-22] MEDS: OMEPRAZOLE 20 MG CAP PO SCH (08:36)
[2020-11-22] MEDS: FERROUS GLUCONATE 324 MG TAB PO SCH (08:37)
[2020-11-22 09:01] VITALS: BP 125/73
[2020-11-22 14:00] VITALS: BP 124/71
[2020-11-22 22:00] VITALS: BP 127/75
[2020-11-23] MEDS: PERCOCET 5MG/325MG TAB PO PRN ×4 (00:01→19:37)
[2020-11-23] MEDS: PIPERACILLIN/TAZOBACTAM SOD 3.375 GM in D5W MINI-BAG PLUS 50 ML IV SCH ×4 (04:04→21:06)
[2020-11-23 06:00] VITALS: BP 115/73
[2020-11-23 06:39] LABS: RED BLOOD COUNT 2.85 10^6/uL (4.30-6.10); WHITE BLOOD COUNT 10.5 10^3/uL (4.0-10.0)
[2020-11-23 06:40] LABS: BASO % 0.4 % (0.0-1.0); EOS # 0.4 10^3/uL (0.0-0.5); EOS % 3.9 % (0.0-3.0); HEMATOCRIT 25.1 % (42.0-52.0); HEMOGLOBIN 7.9 g/dl (13.5-17.5); LYMPH # 1.1 10^3/uL (1.5-5.0); LYMPH % 10.9 % (24.0-44.0); MEAN CORPUSCULAR HEMOGLOBIN 27.7 pg (27.0-33.0); MEAN CORPUSCULAR HGB CONC 31.5 g/dl (32.0-36.5); MEAN CORPUSCULAR VOLUME 88.1 fl (80.0-96.0); MONO % 9.7 % (2.0-8.0); NEUTROPHILS # 7.7 10^3/uL (1.5-8.5); NEUTROPHILS % 73.5 % (36.0-66.0); PLATELET COUNT, AUTOMATED 317 10^3/uL (150-450)
[2020-11-23 07:00] LABS: BLOOD UREA NITROGEN 8 MG/DL (7-18); CALCIUM LEVEL 8.1 MG/DL (8.5-10.1); CARBON DIOXIDE LEVEL 29 MEQ/L (21-32); CHLORIDE LEVEL 102 MEQ/L (98-107); CREATININE FOR GFR 0.55 MG/DL (0.70-1.30); GLOMERULAR FILTRATION RATE > 60.0 (>60); GLUCOSE, FASTING 148 MG/DL (70-100); POTASSIUM SERUM 3.1 MEQ/L (3.5-5.1); SODIUM LEVEL 135 MEQ/L (136-145)
[2020-11-23] MEDS: FLUTICASONE PROP 0.05% NASAL SPRAY 16 GM (FLONASE) SCH ×2 (08:45→21:06)
[2020-11-23] MEDS: ENOXAPARIN 40MG/0.4ML SYRINGE (J1650 PER 10MG) SC SCH (08:46)
[2020-11-23] MEDS: CelecoXIB (CeleBREX) 100 MG CAP PO SCH ×2 (08:47→21:06)
[2020-11-23] MEDS: MONTELUKAST 10 MG TAB PO SCH (08:47)
[2020-11-23] MEDS: SENOKOT S TAB PO SCH ×2 (08:47→21:06)
[2020-11-23] MEDS: OMEPRAZOLE 20 MG CAP PO SCH (08:48)
[2020-11-23] MEDS: FERROUS GLUCONATE 324 MG TAB PO SCH (08:48)
[2020-11-23] MEDS ORDERED: POTASSIUM CHLORIDE 10 MEQ SR TABLET PO ONE (09:55)
[2020-11-23 14:00] VITALS: BP 134/67
--- NOTE | 2020-11-23 14:51 | IPNPDOC ---
Text Note Date of Service The patient was seen on 11/23/20. NOTE Gen. surgery. Dr. Hair The patient is a 45-year-old male with cecal mass status post robotic-assisted laparoscopic right colectomy as per Dr. Hair 11/16/20, revision of anastomosis 11/19/[address] Hair. The patient states he has been up out of bed ambulating, reports abdominal pain has been controlled if he takes 2 Percocet. 3 bowel movements yesterday. Tolera ting regular diet. Afebrile. VSS Resting in bed comfortably. Lungs are clear to auscultation S1 and S2 regular rate rhythm Abdomen is soft, mild tenderness around midline incision, all incisions and port sites C/D/I. JENNY drain in place with 515 mL output yesterday. No Edema. WBC 10.5, continued downward trend. Hemoglobin 7.9 Platelets 317 Potassium 3.1 CRP 17.20, decreased compared with yesterday. Assessment/plan Cecal mass status post robotic-assisted laparoscopic right colectomy as per Dr. Hair 11/16/20, revision of anastomosis 11/19/[address] Hair. The patient is reviewed and examined as per Dr. Hair this morning. Continue to encourage out of bed, ambulation. Continue to encourage incentive spirometry. Tolerating regular diet. Will supplement potassium. Hold off on transfusion, monitor hemoglobin. Possibly discharge 11/24 pending labs, stable hemoglobin. VS,Fishbone, I+O VS, Fishbone, I+O Laboratory Tests 11/23/20 06:11 Vital Signs Date Time Temp Pulse Resp B/P (MAP) Pulse Ox O2 Delivery O2 Flow Rate FiO2 11/23/20 14:31 18 11/23/20 08:54 84 135/79 11/23/20 06:00 98.3 94 Room Air 11/19/20 18:45 1.0 I&O- Last 24 Hours up to 6 AM 11/23/20 06:00 Intake Total 1180 ml Output Total 395 ml Balance 785 ml Lidia Corbin Nov 23, 2020 14:51 MAYO HAIR MD Dec 08, 2020 10:50
[2020-11-23 22:00] VITALS: BP 129/67
[2020-11-24] MEDS: PERCOCET 5MG/325MG TAB PO PRN ×2 (00:08→05:19)
[2020-11-24] MEDS: PIPERACILLIN/TAZOBACTAM SOD 3.375 GM in D5W MINI-BAG PLUS 50 ML IV SCH ×2 (03:48→08:33)
[2020-11-24 06:37] LABS: BASO % 0.2 % (0.0-1.0); EOS # 0.4 10^3/uL (0.0-0.5); EOS % 3.4 % (0.0-3.0); HEMATOCRIT 24.5 % (42.0-52.0); HEMOGLOBIN 7.9 g/dl (13.5-17.5); LYMPH # 1.3 10^3/uL (1.5-5.0); LYMPH % 11.8 % (24.0-44.0); MEAN CORPUSCULAR HEMOGLOBIN 27.8 pg (27.0-33.0); MEAN CORPUSCULAR HGB CONC 32.2 g/dl (32.0-36.5); MEAN CORPUSCULAR VOLUME 86.3 fl (80.0-96.0); MONO % 9.3 % (2.0-8.0); NEUTROPHILS % 72.4 % (36.0-66.0); PLATELET COUNT, AUTOMATED 328 10^3/uL (150-450); RED BLOOD COUNT 2.84 10^6/uL (4.30-6.10)
[2020-11-24 06:52] VITALS: BP 111/68
[2020-11-24 06:57] LABS: BLOOD UREA NITROGEN 8 MG/DL (7-18); CALCIUM LEVEL 8.3 MG/DL (8.5-10.1); CARBON DIOXIDE LEVEL 28 MEQ/L (21-32); CHLORIDE LEVEL 105 MEQ/L (98-107); CREATININE FOR GFR 0.56 MG/DL (0.70-1.30); GLOMERULAR FILTRATION RATE > 60.0 (>60); GLUCOSE, FASTING 121 MG/DL (70-100); POTASSIUM SERUM 3.2 MEQ/L (3.5-5.1); SODIUM LEVEL 139 MEQ/L (136-145)
[2020-11-24] MEDS: FERROUS GLUCONATE 324 MG TAB PO SCH (08:32)
[2020-11-24] MEDS: SENOKOT S TAB PO SCH (08:32)
[2020-11-24] MEDS: OMEPRAZOLE 20 MG CAP PO SCH (08:32)
[2020-11-24] MEDS: MONTELUKAST 10 MG TAB PO SCH (08:32)
[2020-11-24 08:33] VITALS: BP 111/68
[2020-11-24] MEDS: ENOXAPARIN 40MG/0.4ML SYRINGE (J1650 PER 10MG) SC SCH (08:33)
[2020-11-24] MEDS: CelecoXIB (CeleBREX) 100 MG CAP PO SCH (08:33)
[2020-11-24] MEDS: FLUTICASONE PROP 0.05% NASAL SPRAY 16 GM (FLONASE) SCH (08:35)
[2020-11-24] MEDS ORDERED: AUGM875T28 PO (09:26)
[2020-11-24] MEDS ORDERED: CELE100C PO (09:26)
[2020-11-24] MEDS ORDERED: SENN-52 PO (09:26)
[2020-11-24] MEDS ORDERED: PERCOCET PO (09:26)
[2020-11-24] MEDS ORDERED: FERR32TA PO (09:26)
--- NOTE | 2020-11-24 15:19 | DS.PDOC ---
Discharge Summary General Date of Admission Nov 16, 2020 at 10:06 Date of Discharge 11/24/20 Discharge Summary PROCEDURES PERFORMED DURING STAY: status post robotic-assisted laparoscopic right colectomy as per Dr. Tellez 11/16/20, Revision of anastomosis 11/19/[address] Tellez. ADMITTING DIAGNOSES: Cecal mass Hypertension Seasonal allergies Obesity. BMI 40.2 DISCHARGE DIAGNOSES: Cecal mass,status post robotic-assisted laparoscopic right colectomy as per Dr. Tellez 11/16/20, revision of anastomosis 11/19/[address] Tellez. Hypertension Seasonal allergies Obesity. BMI 40.2 HISTORY OF PRESENT ILLNESS: The patient is a 45-year-old male who underwent colonoscopy for colorectal cancer screening and was found to have a 3 to 4 cm cecal mass. Biopsy indicated high-grade dysplasia, admission was arranged for right colectomy as per Dr. Tellez. HOSPITAL COURSE: The patient is status post robotic assisted laparoscopic right colectomy as per Dr. Tellez 11/16/2020. The patient tolerated surgery well. By 11/17 he was advanced to soft diet, Castorena catheter was removed. By the after noon of 11/18 the patient started having some bright red blood and several bloody bowel movements overnight. He reported some crampy abdominal pain and was feeling nauseated. He again had a bloody bowel movement on the morning of 11/19. He was noted to have a decrease in hemoglobin to 8.2. Noncontrast CT indicated a few bubbles of air at the top of the liver but no large perforation. No large fluid collection. There was some edema at the level of the anastomosis in the mesentery which was expected. There was concern regarding a possible complication with anastomosis therefore the patient was brought to the OR for diagnostic laparoscopy as per Dr. Tellez. The patient is status post revision of anastomosis 11/[address] Tellez (see operative report). The patient received 2 units packed red blood cells. The patient was placed on IV Zosyn for possible anastomotic leakage. The patient tolerated the procedure well and continued to recover. The patient's diet was advanced to full liquid. The patient remained afebrile, he was noted to have an elevation in white blood cell count to 20.2 but by 11/22 began to downtrend. He was felt to have a small ileus. He was noted to have a lot of drainage in the JENNY drain possibly reflective of edema at the mesentery. Final pathology was discussed with Dr. Tellez on 11/21 with confirmation of cancer. Plan for outpatient evaluation with oncology. The patient was advanced to soft diet on 11/22. On 11/23 the patient's hemoglobin was noted to be 7.9, there was no indication of any ongoing bleeding however and the patient was asymptomatic. CRP continued to downtrend as well. The patient continued to have 450 mL of drainage in the JENNY drain left lower abdomen, plan was to leave this in place for discharge with outpatient follow-up. By 11/24/2020 the patient's hemoglobin remained stable at 7.9, the patient was tolerating soft diet and had been out of bed ambulating, the patient was reviewed and examined as per Dr. Pederson, felt stable for discharge. DISCHARGE MEDICATIONS: Please see below. ALLERGIES: Please see below. PHYSICAL EXAMINATION ON DISCHARGE: VITAL SIGNS: Please see below. GENERAL: Resting in bed, no acute distress HEENT: Moist mucous membranes CARDIOVASCULAR EXAMINATION: S1-S2 regular rate rhythm RESPIRATORY EXAMINATION: Clear to auscultation ABDOMINAL EXAMINATION: Soft, nontender, incisions clean/dry/intact, JENNY drain with serous drainage EXTREMITIES: No edema LABORATORY DATA: Please see below. 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 There are scattered bubbles of free intraperitoneal air consistent with residual postoperative air. A tiny quantity of fluid is seen in the pelvic reflections. No evidence of obstruction. <Electronically signed by Alec Mar > 11/19/20 0845 (1) Discharge home DISPOSITION: 01 Home, Self-Care. DISCHARGE INSTRUCTIONS: No heavy lifting, pushing, pulling greater than 20 pounds for 2 weeks. May shower with covering JENNY drain site. No bath or swimming. Dry dressing to JENNY drain site. Monitor JENNY and drainage amount and bring a log to his next appointment We will arrange referral to oncology as outpatient Percocet 1 to 2 tablets as needed every 6 hours as needed for pain Augmentin 875 mg p.o. twice daily for an additional 5 days Call back to the office with any questions or concerns, wound drainage, fever, chills or increasing pain ITEMS TO FOLLOWUP ON ON OUTPATIENT: 1. We will arrange for oncology referral as outpatient. DISCHARGE CONDITION: Stable. TIME SPENT ON DISCHARGE: Greater than 30 minutes. Vital Signs/I&Os Vital Signs Date Time Temp Pulse Resp B/P (MAP) Pulse Ox O2 Delivery O2 Flow Rate FiO2 11/24/20 08:33 70 111/68 11/24/20 06:52 98.1 18 93 Room Air 11/19/20 18:45 1.0 I&O- Last 24 Hours up to 6 AM 11/24/20 06:00 Intake Total 1160 ml Output Total 1700 ml Balance -540 ml Laboratory Data Labs 24H Laboratory Tests 2 11/24/20 06:14: Immature Granulocyte % (Auto) 2.9, Neutrophils (%) (Auto) 72.4H, Lymphocytes (%) (Auto) 11.8L, Monocytes (%) (Auto) 9.3H, Eosinophils (%) (Auto) 3.4H, Basophils (%) (Auto) 0.2, Neutrophils # (Auto) 8.0, Lymphocytes # (Auto) 1.3L, Monocytes # (Auto) 1.0H, Eosinophils # (Auto) 0.4, Basophils # (Auto) 0.0, Nucleated Red Blood Cells % (auto) 0.0, Anion Gap 6L, Glomerular Filtration Rate > 60.0, Calcium Level 8.3L, C-Reactive Protein, Quantitative 14.30H CBC/BMP Laboratory Tests 11/24/20 06:14 Discharge Medications Scheduled Amlodipine Besylate (Amlodipine Besylate) 10 Mg Tablet, 10 MG PO DAILY, (Reported) Amoxicillin/Potassium Clav (Augmentin 875-125 Tablet) 1 Each Tablet, 1 TAB PO BID Celecoxib (Celebrex) 100 Mg Capsule, 200 MG PO BID Cetirizine HCl/Pseudoephedrine (Zyrtec-D Tablet) 1 Each Tab.er.12h, 1 TAB PO DAILY, (Reported) Ferrous Gluconate (Ferrous Gluconate) 324 Mg Tablet, 324 MG PO DAILY Fluticasone Propionate (Flonase Allergy Relief) 9.9 Ml [place].susp, 2 SPRAYS NA BID, (Reported) Montelukast Sodium (Montelukast Sodium) 10 Mg Tablet, 10 MG PO DAILY, (Reported) Omeprazole (Omeprazole) 40 Mg Capsule.dr, 40 MG PO DAILY, (Reported) Sennosides/Docusate Sodium (Senna Plus Tablet) 1 Each Tablet, 1 TAB PO BID Scheduled PRN Oxycodone/Acetaminophen (Oxycodone-Acetaminophen 5-325) 1 Each Tablet, 1 TAB PO Q4-6HP PRN for pain Allergies Coded Allergies: No Known Allergies (Unverified , 10/22/20) Lidia Corbin Nov 24, 2020 15:19
== END 2020-11-24 10:10 | disposition home or self-care (01) | DRG 329 ==
LOC: M OR 10:06 → M MS5PR 20:13
PROVIDERS: ADMIT Surgery; ATTEND Surgery
PROC: 0DTF4ZZ Resection of Right Large Intestine, Percutaneous Endoscopic Approach (ICD-10-PCS; 2020-11-16)
PROC: 8E0W4CZ Robotic Assisted Procedure of Trunk Region, Percutaneous Endoscopic Approach (ICD-10-PCS; principal; 2020-11-16 12:10)
PROC: 0D1B0ZL Bypass Ileum to Transverse Colon, Open Approach (ICD-10-PCS; 2020-11-19)
DX: C18.0 Malignant neoplasm of cecum (principal); K63.1 Perforation of intestine (nontraumatic); Z68.41 Body mass index [BMI] 40.0-44.9, adult; I10 Essential (primary) hypertension; E66.9 Obesity, unspecified; Z79.899 Other long term (current) drug therapy

== ENCOUNTER → 2021-04-01 | Outpatient (CLI) | payer OTHER ==
[~2021-04-01] MED LIST changes: +AUGM875T28 PO; +CELE100C PO; -CelecoXIB 400 MG CAP PO ONE; +FERR240T PO; +FERR32TA PO; +GASTROGRAFIN SOLUTION 30ML (Q9963) As Ordered ONE; -HEPARIN SOD (PORCINE) 5000UNITS/ML 1ML VIAL/SYRINGE SQ ONE; -LIDOCAINE 1% MDV 20ML VIAL SQ PRN; -LR 1,000 ML IV ONE; +PERCOCET PO; +SENN-52 PO; -cefoTEtan DISODIUM 2 GM in D5W MINI-BAG PLUS 50 ML IV ONE; -metroNIDAZOLE 500 MG in IV 1 EA IV ONE
--- NOTE | 2021-04-01 17:15 | REP ---
INDICATION: INCISIONAL HERNIA WITHOUT OBSTRUCTION OR GANGRENE COMPARISON: 11/19/2020. TECHNIQUE: CT Scan of the abdomen and pelvis was performed without intravenous contrast, with oral contrast. Sagittal and coronal reconstruction images performed. FINDINGS: Lung bases: Unremarkable. Liver: Grossly unremarkable. Gallbladder: Unremarkable. Spleen: Grossly unremarkable. Adrenals: Normal. Pancreas: Grossly unremarkable.. Kidneys: No hydronephrosis or nephrolithiasis. Ureters demonstrate no dilatation or calculus. Small and large bowel: Prior right hemicolectomy. There are scattered diverticula of the left colon. The previously noted inflammation and edema surrounding the ileocolic anastomosis has significantly improved, with minimal residual edema/fibrosis. There is no bowel obstruction. Free fluid: None. Abdominal aorta: No aneurysm. Adenopathy: None. Osseous structures: There are degenerative changes of the spine without compression fracture. Pelvis: No mass. No bladder calculus seen. Small bilateral inguinal hernias contain noninflamed fat. There is mildly increased diastasis of the rectus muscles. IMPRESSION: Prior right hemicolectomy. The previously noted inflammation and edema surrounding the ileocolic anastomosis has significantly improved, with minimal residual edema/fibrosis now present. There is no free air or obstruction. No free fluid or fluid collection. There is mild increased diastasis of the rectus muscles. <Electronically signed by Gerson Mckinney > 04/01/21 [id number]
== END ==
LOC: M RAD 13:44
PROVIDERS: ATTEND Surgery
DX: K43.2 Incisional hernia without obstruction or gangrene (principal)
CPT/HCPCS: 74176; Q9963

== ENCOUNTER → 2021-05-07 | Outpatient (CLI) | payer OTHER ==
[~2021-05-07] MED LIST changes: +D31000TA2 PO; -GASTROGRAFIN SOLUTION 30ML (Q9963) As Ordered ONE; -MONT10TA10 PO; +MONT10TA97 PO; -OMEP-221 PO; +OMEP40CA5 PO
[2021-05-07 16:10] LABS: HEMOGLOBIN A1c 6.2 %
== END ==
LOC: M WUC 13:49
PROVIDERS: ATTEND Nurse Practitioner Family
DX: R73.01 Impaired fasting glucose (principal)

== ENCOUNTER → 2021-05-26 | Outpatient (CLI) | payer OTHER ==
[~2021-05-26] MED LIST changes: -D31000TA2 PO; +MONT10TA10 PO; -MONT10TA97 PO; +OMEP-221 PO; -OMEP40CA5 PO
--- NOTE | 2021-05-31 20:55 | SLEEPCENT ---
DATE: 05/26/2021 ORDERED BY: ISAC Kingston Nocturnal polysomnography was performed for the re-titration of pressure therapy in this patient with obstructive sleep apnea syndrome. For testing a ResMed Mirage full face mask of medium size was used, 4 cm of water pressure were applied to the circuit, and the lights were extinguished. Seven hours and 53 minutes of data were reviewed. There were 411 minutes of sleep identified. Sleep latency was prolonged at 30.5 minutes. REM latency was normal at 76.5 minutes. Sleep architecture was good with three REM cycles. Overall sleep efficiency was 87.7%. The electrocardiogram showed a sinus rhythm with an average heart rate of 70 beats per minute. EEG showed normal waveforms for wake and sleep. Respiratory events were best palliated with CPAP at a pressure of +9 with some minor limb activity in the EMG leads. Limb movement arousal index on this occasion was 5.3. IMPRESSION: Obstructive sleep apnea syndrome (G47.33). RECOMMENDATION: Nightly use of pressure therapy 9 cm of water. cc: BRETT WILDER PA-C
== END ==
LOC: M SLEEP 19:50
PROVIDERS: ATTEND Physician Assistant
DX: G47.33 Obstructive sleep apnea (adult) (pediatric) (principal)

== ENCOUNTER → 2021-11-01 | Outpatient (CLI) | payer OTHER ==
[~2021-11-01] MED LIST changes: -MONT10TA10 PO; +MONT10TA97 PO; -OMEP-221 PO; +OMEP40CA5 PO; +VITA100093 PO; +VITA200016 PO
== END ==
LOC: M LABSMTC 10:10
PROVIDERS: ATTEND Anesthesiology

== ENCOUNTER 2021-11-02 10:26 | Day surgery (SDC) | payer OTHER ==
[~2021-11-02] VITALS: Ht 182.9 cm; Wt 132.4 kg
[~2021-11-02 10:26] MED LIST changes: +LIDOCAINE 2% 100MG/5ML SDV (FOR ANES.) As Ordered ONE; +NS 1,000 ML IV ONE; +propofoL 200 MG/20 ML VIAL As Ordered ONE
[2021-11-02 12:37] VITALS: BP 147/93
== END 2021-11-02 12:38 | disposition home or self-care (01) ==
LOC: M OPP 10:26
PROVIDERS: ATTEND Internal Medicine Gastroenterology
DX: Z12.11 Encounter for screening for malignant neoplasm of colon (principal); Z85.038 Personal history of other malignant neoplasm of large intestine; Z98.0 Intestinal bypass and anastomosis status; Z79.1 Long term (current) use of non-steroidal anti-inflammatories (NSAID); Z79.899 Other long term (current) drug therapy; F17.210 Nicotine dependence, cigarettes, uncomplicated

== ENCOUNTER → 2022-09-13 | Outpatient (REF) | payer OTHER ==
[~2022-09-13] MED LIST changes: -LIDOCAINE 2% 100MG/5ML SDV (FOR ANES.) As Ordered ONE; -NS 1,000 ML IV ONE; -propofoL 200 MG/20 ML VIAL As Ordered ONE
[2022-09-14 12:39] LABS: RSV AMPLIFICATION NEGATIVE (NEGATIVE)
== END ==
LOC: M SFHCLERA 11:20
PROVIDERS: ATTEND Family Medicine
DX: R05.9 Cough, unspecified (principal)

== ENCOUNTER → 2022-10-19 | Outpatient (CLI) | payer OTHER ==
[~2022-10-19] MED LIST changes: +FERR1TAB8 PO
== END ==
LOC: M RAD 11:29
PROVIDERS: ATTEND Internal Medicine Medical Oncology
DX: R22.1 Localized swelling, mass and lump, neck (principal)

== ENCOUNTER → 2022-11-09 | Outpatient (CLI) | payer OTHER ==
[~2022-11-09] MED LIST changes: +LIDOCAINE 1% MDV 20ML VIAL As Ordered ONE
[2022-11-09 12:55] VITALS: TEMP 98.5
[2022-11-09 13:28] VITALS: BP 170/103; O2SAT 97
== END ==
LOC: M IRPRO 12:42
PROVIDERS: ATTEND Otolaryngology
DX: R22.1 Localized swelling, mass and lump, neck (principal)

== ENCOUNTER → 2023-04-26 | Outpatient (REF) | payer OTHER ==
[~2023-04-26] MED LIST changes: -LIDOCAINE 1% MDV 20ML VIAL As Ordered ONE
== END ==
LOC: M SFHCDERM 13:17
PROVIDERS: ATTEND Nurse Practitioner Family
DX: D23.39 Other benign neoplasm of skin of other parts of face (principal)

== ENCOUNTER → 2023-05-15 | Outpatient (CLI) | payer OTHER ==
[~2023-05-15] MED LIST changes: +GASTROGRAFIN SOLUTION 30ML As Ordered ONE; +ISOVUE-370 76% 100ML VIAL As Ordered ONE; +VITA200012 PO
== END ==
LOC: M RAD 13:39
PROVIDERS: ATTEND Internal Medicine Medical Oncology
DX: C18.9 Malignant neoplasm of colon, unspecified (principal); R97.0 Elevated carcinoembryonic antigen [CEA]; K76.0 Fatty (change of) liver, not elsewhere classified; K57.30 Diverticulosis of large intestine without perforation or abscess without bleeding; K40.90 Unilateral inguinal hernia, without obstruction or gangrene, not specified as recurrent; I25.10 Atherosclerotic heart disease of native coronary artery without angina pectoris
CPT/HCPCS: 71260; 74177; Q9963; Q9967

== ENCOUNTER → 2023-08-14 | Outpatient (CLI) | payer OTHER ==
[~2023-08-14] MED LIST changes: -GASTROGRAFIN SOLUTION 30ML As Ordered ONE; -ISOVUE-370 76% 100ML VIAL As Ordered ONE
== END ==
LOC: M PLAIMG 07:34
PROVIDERS: ATTEND Family Medicine
DX: Q24.8 Other specified congenital malformations of heart (principal)

== ENCOUNTER → 2023-08-14 | Outpatient (CLI) | payer OTHER ==
[2023-08-14 18:01] LABS: ALBUMIN 4.2 G/DL (3.2-5.2); ALKALINE PHOSPHATASE 100 U/L (46-116); ALT/SGPT 43 U/L (7.0-40); AST/SGOT 23 U/L (<34); BILIRUBIN,TOTAL 0.5 MG/DL (0.3-1.2); BLOOD UREA NITROGEN 11 MG/DL (9-23); CALCIUM LEVEL 9.4 MG/DL (8.5-10.1); CARBON DIOXIDE LEVEL 26 MMOL/L (20-31); CHLORIDE LEVEL 107 MMOL/L (98-107); CREATININE FOR GFR 0.52 MG/DL (0.70-1.30); GLOMERULAR FILTRATION RATE > 60.0 (>60); GLUCOSE, FASTING 117 MG/DL (60-100); POTASSIUM SERUM 4.1 MMOL/L (3.5-5.1); SODIUM LEVEL 139 MMOL/L (136-145); TOTAL PROTEIN 6.9 G/DL (5.7-8.2)
[2023-08-14 18:09] LABS: BASO # 0.1 10^3/uL (0.0-0.2); BASO % 0.6 % (0.0-1.0); EOS # 0.3 10^3/uL (0.0-0.5); EOS % 2.1 % (0.0-3.0); HEMATOCRIT 42.2 % (42.0-52.0); HEMOGLOBIN 15.1 g/dl (13.5-17.5); LYMPH # 2.6 10^3/uL (1.5-5.0); LYMPH % 20.6 % (24.0-44.0); MEAN CORPUSCULAR HEMOGLOBIN 31.5 pg (27.0-33.0); MEAN CORPUSCULAR HGB CONC 35.8 g/dl (32.0-36.5); MEAN CORPUSCULAR VOLUME 88.1 fl (80.0-96.0); MONO # 0.8 10^3/uL (0.0-0.8); MONO % 6.2 % (2.0-8.0); NEUTROPHILS # 8.9 10^3/uL (1.5-8.5); NEUTROPHILS % 70.1 % (36.0-66.0); PLATELET COUNT, AUTOMATED 281 10^3/uL (150-450); RED BLOOD COUNT 4.79 10^6/uL (4.30-6.10); WHITE BLOOD COUNT 12.6 10^3/uL (4.0-10.0)
== END ==
LOC: M LAB 16:46
PROVIDERS: ATTEND Internal Medicine Hematology & Oncology
DX: C18.9 Malignant neoplasm of colon, unspecified (principal)

== ENCOUNTER → 2023-10-06 | Outpatient (REF) | payer OTHER ==
[2023-10-06 18:02] LABS: ALBUMIN 4.1 G/DL (3.2-5.2); ALKALINE PHOSPHATASE 115 U/L (46-116); ALT/SGPT 51 U/L (7.0-40); AST/SGOT 32 U/L (<34); BILIRUBIN,TOTAL 0.6 MG/DL (0.3-1.2); BLOOD UREA NITROGEN 13 MG/DL (9-23); CALCIUM LEVEL 9.6 MG/DL (8.5-10.1); CARBON DIOXIDE LEVEL 26 MMOL/L (20-31); CHLORIDE LEVEL 105 MMOL/L (98-107); CHOLESTEROL LEVEL 177 MG/DL (<200); CHOLESTEROL RISK RATIO 4.23 (<5); CREATININE FOR GFR 0.65 MG/DL (0.70-1.30); GLOMERULAR FILTRATION RATE > 60.0 (>60); GLUCOSE, FASTING 179 MG/DL (60-100); HDL CHOLESTEROL 41.8 MG/DL (>40); LDL CHOLESTEROL 70.6 MG/DL (<100); NON-HDL-C 135.2 MG/DL; POTASSIUM SERUM 4.3 MMOL/L (3.5-5.1); SODIUM LEVEL 139 MMOL/L (136-145); TOTAL PROTEIN 7.4 G/DL (5.7-8.2); TRIGLYCERIDES LEVEL 323 MG/DL (<150)
[2023-10-06 18:16] LABS: HEMOGLOBIN A1c 6.5 % (4.0-6.0)
== END ==
LOC: M LABWUC 16:51
PROVIDERS: ATTEND Family Medicine
DX: E66.01 Morbid (severe) obesity due to excess calories (principal)

== ENCOUNTER → 2023-11-14 | Outpatient (CLI) | payer OTHER ==
[~2023-11-14] MED LIST changes: +ISOVUE-370 76% 100ML VIAL ONE
== END ==
LOC: M PLAIMG 07:45
PROVIDERS: ATTEND Thoracic Surgery (Cardiothoracic Vascular Surgery)
DX: Q24.8 Other specified congenital malformations of heart (principal)
CPT/HCPCS: 71260; Q9967

== ENCOUNTER → 2024-02-06 | Outpatient (REF) | payer OTHER ==
[~2024-02-06] MED LIST changes: -ISOVUE-370 76% 100ML VIAL ONE
[2024-02-06 18:53] LABS: ALBUMIN 4.2 G/DL (3.2-5.2); ALKALINE PHOSPHATASE 113 U/L (46-116); ALT/SGPT 42 U/L (7.0-40); AST/SGOT 22 U/L (<34); BILIRUBIN,TOTAL 0.5 MG/DL (0.3-1.2); BLOOD UREA NITROGEN 13 MG/DL (9-23); CALCIUM LEVEL 9.1 MG/DL (8.5-10.1); CARBON DIOXIDE LEVEL 25 MMOL/L (20-31); CHLORIDE LEVEL 105 MMOL/L (98-107); CREATININE FOR GFR 0.51 MG/DL (0.70-1.30); GLOMERULAR FILTRATION RATE > 60.0 (>60); GLUCOSE, FASTING 135 MG/DL (60-100); POTASSIUM SERUM 4.2 MMOL/L (3.5-5.1); SODIUM LEVEL 136 MMOL/L (136-145); TOTAL PROTEIN 7.1 G/DL (5.7-8.2)
[2024-02-06 19:11] LABS: HEMOGLOBIN A1c 6.6 % (4.0-6.0)
== END ==
LOC: M SFHCLERA 09:16
PROVIDERS: ATTEND Family Medicine
DX: R73.03 Prediabetes (principal)

== ENCOUNTER 2025-01-13 07:57 | Day surgery (SDC) | payer OTHER ==
[~2025-01-13] VITALS: Ht 182.9 cm; Wt 134.7 kg
[~2025-01-13 07:57] MED LIST changes: +TELM1TAB35 PO
[2025-01-13 09:32] VITALS: TEMP 97.3
[2025-01-13] MEDS ORDERED: GLYCOPYRROLATE INJ 0.2 MG/ML 2 ML VIAL As Ordered ONE (09:32)
[2025-01-13] MEDS ORDERED: LIDOCAINE 2% 100 MG/5 ML SDV (FOR ANES.) As Ordered ONE (09:32)
[2025-01-13 09:46] VITALS: BP 104/56; O2SAT 96
== END 2025-01-13 09:57 | disposition home or self-care (01) ==
LOC: M OPP 07:57
PROVIDERS: ATTEND Internal Medicine Gastroenterology
DX: K57.30 Diverticulosis of large intestine without perforation or abscess without bleeding (principal); K64.0 First degree hemorrhoids; Z98.0 Intestinal bypass and anastomosis status; Z85.038 Personal history of other malignant neoplasm of large intestine; K22.70 Barrett's esophagus without dysplasia; K44.9 Diaphragmatic hernia without obstruction or gangrene; R12 Heartburn; G47.30 Sleep apnea, unspecified; Z79.51 Long term (current) use of inhaled steroids; Z79.899 Other long term (current) drug therapy; F17.210 Nicotine dependence, cigarettes, uncomplicated
CPT/HCPCS: 43239; 45378; 88305; J1596